=== PATIENT | male | born 1990 | race African-American/Black ===

== ENCOUNTER 2019-06-17 18:03 | Emergency (ER) | payer OTHER ==
[2019-06-17 18:15] VITALS: RESP 18
[2019-06-17] MEDS ORDERED: KETOROLAC 30 MG/ML 1 ML VIAL IM STA (19:50)
[2019-06-17] MEDS ORDERED: DEXAMETHASONE SOD PHOSPHATE 10 MG/ML 1 ML VIAL IM STA (19:50)
[2019-06-17] MEDS ORDERED: cefTRIAXone 1,000 MG VIAL (IM USE) IM STA (19:51)
[2019-06-17] MEDS ORDERED: AZITHROMYCIN 500 MG TAB PO STA (19:51)
[2019-06-17] MEDS ORDERED: LIDOCAINE 1% INJ 10MG/ML (20 ML MDV) IM STA (19:52)
--- NOTE | 2019-06-17 21:03 | XR ---
EXAMINATION TYPE: XR soft tissue neck DATE OF EXAM: 06/17/2019 COMPARISON: NONE HISTORY: Sore throat TECHNIQUE: 2 views FINDINGS: Epiglottis within normal limits. Prevertebral soft tissues appear normal. Tonsils appear no rmal. Subglottic trachea appears normal. Adenoids appear within normal limits. IMPRESSION: Negative cervical soft tissue exam.
--- NOTE | 2019-06-17 21:14 | ED ---
General Adult HPI - General Chief complaint: ENT Stated complaint: Shortness of Breath,swelling,dysphagia Time Seen by Provider: 06/17/19 19:09 Source: patient Mode of arrival: ambulatory Limitations: no limitations - History of Present Illness Initial comments: 28-year-old male patient presents to the emergency department today for evaluation of sore throat, throat swelling. Patient states symptoms started tonight when he woke from sleep feeling like he couldn't breathe. Patient states he feels like his throat is swollen to the point where cutting off his airway. Patient states he has been spitting throughout the day however he is able to swallow certain liquids. Patient states he was able to eat soup and also have Mountain Dew today and was able to swallow this. Patient denies any fever or chills. Denies any nasal congestion or drainage. Denies any cough. Denies rash. Patient states that he has been performing oral sex on a woman who possibly has a sexually transmitted infection. Patient denies any recent chest pain, abdominal pain, nausea, vomiting, diarrhea, constipation, back pain, numbness, tingling, dizziness, weakness, hematuria, dysuria, urinary urgency, urinary frequency, headache, visual changes, or any other complaints. - Related Data Previous Rx's Medication Instructions Recorded Ibuprofen [Motrin] 600 mg PO Q8HR PRN #30 tab 06/17/19 Allergies Allergy/AdvReac Type Severity Reaction Status Date / Time No Known Allergies Allergy Verified 06/17/19 18:15 Review of Systems ROS Statement: Those systems with pertinent positive or pertinent negative responses have been documented in the HPI. ROS Other: All systems not noted in ROS Statement are negative. Past Medical History Past Medical History: No Reported History History of Any Multi-Drug Resistant Organisms: None Reported Past Surgical History: No Surgical Hx Reported Past Psychological History: No Psychological Hx Reported Smoking Status: Never smoker Past Alcohol Use History: Occasional Past Drug Use History: Marijuana General Exam Limitations: no limitations General appearance: alert, in no apparent distress, other (This is a well-developed, well-nourished adult male patient in no acute distress. Vital signs upon presentation are temperature 98.1F, pulse 90, respirations 18, blood pressure 123/86, pulse ox 100% on room air.) Eye exam: Present: normal appearance, PERRL, EOMI. Absent: scleral icterus, conjunctival injection, periorbital swelling ENT exam: Present: mucous membranes moist, TM's normal bilaterally. Absent: normal oropharynx (Pharyngeal erythema, uvular edema) Neck exam: Present: normal inspection. Absent: tenderness, meningismus, lympha denopathy Respiratory exam: Present: normal lung sounds bilaterally. Absent: respiratory distress, wheezes, rales, rhonchi, stridor Cardiovascular Exam: Present: regular rate, normal rhythm, normal heart sounds. Absent: systolic murmur, diastolic murmur, rubs, gallop, clicks GI/Abdominal exam: Present: soft, normal bowel sounds. Absent: distended, tenderness, guarding, rebound, rigid Neurological exam: Present: alert, oriented X3, CN II-XII intact Psychiatric exam: Present: normal affect, normal mood Skin exam: Present: warm, dry, intact, normal color. Absent: rash Course Vital Signs 06/17/19 06/17/19 18:08 21:29 Temperature 98.1 F 98.5 F Pulse Rate 90 95 Respiratory 18 18 Rate Blood Pressure 123/86 122/83 O2 Sat by Pulse 100 97 Oximetry Medical Decision Making - Medical Decision Making 28-year-old male patient presents to the emergency department today for evaluation of sore throat and throat swelling. Physical examination did reveal uvular edema and pharyngeal erythema. Airway is patent. Strep screen was negative. We did send for a gonococcal culture of the throat. Soft tissue x- ray of the neck is unremarkable. He was given IM Toradol and Decadron here in the department. He was also given IM Rocephin and oral azithromycin to treat possible sexually transmitted infection. He was able to tolerate swallowing the pills per He'll be discharged to follow up with his primary care physician for recheck in 1-2 days. Return parameters were discussed in detail. He verbalizes understanding and agrees with this plan. - Lab Data Lab Results 06/17/19 Range/Units 19:50 Group A Strep Rapid Negative (Negative) - Radiology Data Radiology results: report reviewed, image reviewed Two-view x-ray of the neck is obtained. Report was reviewed in its entirety. Impression by Dr. Gifford shows negative cervical soft tissue exam. Disposition Clinical Impression: Pharyngitis Disposition: HOME SELF-CARE Condition: Good Instructions (If sedation given, give patient instructions): Pharyngitis (ED) Additional Instructions: Take medications as directed. Follow-up through primary care physician for recheck in 1-2 days. Return to the emergency department immediately for any new, worsening, or concerning symptoms. Prescriptions: Ibuprofen [Motrin] 600 mg PO Q8HR PRN #30 tab PRN Reason: Pain Is patient prescribed a controlled substance at d/c from ED?: No Referrals: None,Stated [Primary Care Provider] - 1-2 days Time of Disposition: 21:14
[2019-06-17 21:31] VITALS: BP 122/83; PULSE 95; TEMP 98.5
== END 2019-06-17 21:29 | disposition home or self-care (01) ==
LOC: EC 18:03
DX: J02.9 Acute pharyngitis, unspecified (principal); J39.8 Other specified diseases of upper respiratory tract; Z20.2 Contact with and (suspected) exposure to infections with a predominantly sexual mode of transmission; R22.1 Localized swelling, mass and lump, neck
CPT/HCPCS: 87081; 87430; 70360; 99285; 96372 ×3; J1100; J2001; J0696; J1885